=== PATIENT | female | born 1935 | race Caucasian/White ===

== ENCOUNTER → 2016-11-03 | Outpatient (CLI) | payer MEDICARE, OTHER ==
--- NOTE | 2016-11-03 10:35 | RADRPT ---
PROCEDURE: XR pelvis / bilateral hip. CLINICAL INDICATION: Hip pain TECHNIQUE: AP pelvis/AP and lateral right and left hip views available for review. COMPARISON: No prior studies are available for comparison. FINDINGS: There is a left total hip replacement. There is no evidence of loosening of the prosthesis. There i s no evidence of hardware failure. The right hip is unremarkable. There are probable post traumatic changes involving the right greater trochanter. There is severe L4-S1 degenerative disk disease. T here is otherwise normal mineralization, architecture and alignment. No acute fractures, dislocati on or osseous lesions are identified. There are normal soft tissues. IMPRESSION: Unremarkable left total hip replaced. Severe L4-S1 degenerative disk disease Unremarkable right hip Post traumatic changes involving the right greater trochanter RPTAT: [facility] .David Cisse MD, Date Time Electronically viewed and signed by .David Cisse MD, on 11/03/2016 10:35 .B/
--- NOTE | 2016-11-03 10:36 | RADRPT ---
PROCEDURE: XR right knee. CLINICAL INDICATION: Knee pain TECHNIQUE: AP weightbearing, PA weightbearing, lateral weightbearing and sunrise views are availab le for review. COMPARISON: None available FINDINGS: There is moderate osteoarthrosis involving the lateral tibial femoral compartment and mild osteoarth rosis involving the patellofemoral compartment and the medial tibial femoral compartment. This is as sociated with joint space narrowing, subchondral sclerosis and osteophytosis. There is otherwise normal mineralization, architecture and alignment. No fractures are identified. No osseous lesions are identified. The soft tissues are unremarkable. 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 RPTAT: [facility] .David Cisse MD, Date Time Electronically viewed and signed by .David Cisse MD, on 11/03/2016 10:36 .B/
== END | disposition home or self-care (01) ==
LOC: HKI 09:34
PROVIDERS: ATTEND Orthopaedic Surgery
DX: M25.561 Pain in right knee (principal); M17.11 Unilateral primary osteoarthritis, right knee; Z96.642 Presence of left artificial hip joint
CPT/HCPCS: 20610; 73523; 73564; G0463